=== PATIENT | male | born 2000 | race African-American/Black ===

== ENCOUNTER 2021-12-21 08:41 | Emergency (ER) | payer OTHER ==
[2021-12-21 08:47] VITALS: BMI 22.1
[2021-12-21] MEDS ORDERED: KETOROLAC TROMETHAMINE 15 MG/ML VIAL IVPUSH ONE (09:08)
[2021-12-21] MEDS ORDERED: KETOROLAC TROMETHAMINE 15 MG/ML VIAL ONE (09:18)
[2021-12-21] MEDS ORDERED: diazePAM CARPU-JECT 10 MG/2 ML DISP.SYRIN IVPUSH ONE (09:26)
[2021-12-21] MEDS ORDERED: diazePAM CARPU-JECT 10 MG/2 ML DISP.SYRIN ONE (09:47)
[2021-12-21] MEDS ORDERED: FLUMAZENIL 0.5 MG/5 ML VIAL IVPUSH ONE (10:04)
[2021-12-21 12:43] VITALS: BP 131/79; PULSE 59; TEMP 98
== END 2021-12-21 12:30 | disposition home or self-care (01) ==
LOC: JER 08:41
PROC: 0RSCXZZ Reposition Right Temporomandibular Joint, External Approach (ICD-10-PCS; principal; 2021-12-21)
PROC: 0RSDXZZ Reposition Left Temporomandibular Joint, External Approach (ICD-10-PCS; 2021-12-21)
PROC: 3E033NZ Introduction of Analgesics, Hypnotics, Sedatives into Peripheral Vein, Percutaneous Approach (ICD-10-PCS; 2021-12-21)
PROC: 3E0333Z Introduction of Anti-inflammatory into Peripheral Vein, Percutaneous Approach (ICD-10-PCS; 2021-12-21)
DX: S03.03XA Dislocation of jaw, bilateral, initial encounter (principal); Y99.9 Unspecified external cause status
CPT/HCPCS: 70330-TC-FY; 99284-25

== ENCOUNTER 2022-02-27 12:36 | Emergency (ER) | payer OTHER ==
[2022-02-27 13:09] VITALS: BMI 22.1
[2022-02-27] MEDS ORDERED: PROPOFOL 20 ML ONE (14:15)
[2022-02-27 19:26] VITALS: TEMP 97.6
[2022-02-27 19:42] VITALS: BP 120/81; PULSE 60; RESP 16
== END 2022-02-27 18:00 | disposition home or self-care (01) ==
LOC: JER 12:36
DX: S03.00XA Dislocation of jaw, unspecified side, initial encounter (principal)
CPT/HCPCS: 99283-25; 99284-25

== ENCOUNTER 2022-03-03 14:05 | Emergency (ER) | payer OTHER ==
[2022-03-03 14:20] VITALS: RESP 18; BMI 22.1
[2022-03-03] MEDS ORDERED: ALBUTEROL SO4 2.5/IPRATROPIUM 0.5 INH SOL 3 ML VIAL.NEB. NEB ONE ×2 (15:11→15:16)
[2022-03-03 15:58] VITALS: BP 121/72; PULSE 73; TEMP 97.4
== END 2022-03-03 15:50 | disposition home or self-care (01) ==
LOC: JERFT 14:05
PROC: 3E0F7GC Introduction of Other Therapeutic Substance into Respiratory Tract, Via Natural or Artificial Opening (ICD-10-PCS; principal; 2022-03-03)
DX: J45.901 Unspecified asthma with (acute) exacerbation (principal)
CPT/HCPCS: 99284-25

== ENCOUNTER 2022-05-06 12:11 | Emergency (ER) | payer OTHER ==
[2022-05-06 12:24] VITALS: RESP 20; TEMP 98.1; BMI 24.6
[2022-05-06] MEDS ORDERED: BENZTROPINE MESYLATE 1 MG TABLET PO ONE (14:02)
[2022-05-06 14:35] VITALS: BP 124/67; PULSE 76
== END 2022-05-06 14:38 | disposition home or self-care (01) ==
LOC: JER 12:11
DX: R47.89 Other speech disturbances (principal); T50.905A Adverse effect of unspecified drugs, medicaments and biological substances, initial encounter
CPT/HCPCS: 99283-25

== ENCOUNTER 2023-01-01 10:44 | Emergency (ER) | payer OTHER ==
[2023-01-01 10:50] VITALS: TEMP 98.3; BMI 29.9
[2023-01-01] MEDS ORDERED: SODIUM CHLORIDE 0.9% 1000 ML INFUS.BAG IV ONE (12:11)
[2023-01-01 13:14] LABS: BASO % 0.4 % (0-2.0); EOS % 6.2 % (0-4.5); HEMATOCRIT 45.1 % (35.4-49); HEMOGLOBIN 15.2 GM/dL (11.7-16.9); LYMPH % 25.1 % (8-40); MCH 30.7 pg (25.7-33.7); MCHC 33.7 g/dl (32.0-35.9); MEAN CELL VOLUME 91.1 fl (80-96); MEAN PLT VOLUME 7.7 fl (7.5-11.1); MONO % 16.4 % (3.8-10.2); NEUT % 51.9 % (42.8-82.8); PLATELET COUNT 248 10^3/uL (134-434); RBC 4.95 M/mm3 (4.00-5.60); RDW 13.9 % (11.9-15.9); WHITE BLOOD COUNT 6.5 K/mm3 (4.0-10.0)
[2023-01-01 13:16] LABS: POTASSIUM 4.6 mmol/L (3.5-5.1)
[2023-01-01 13:19] LABS: ALBUMIN 3.7 g/dl (3.4-5.0); CALCIUM 9.5 mg/dL (8.5-10.1)
[2023-01-01 13:24] LABS: BILIRUBIN,TOTAL 0.4 mg/dL (0.2-1)
[2023-01-01 13:43] LABS: PH,URINE 7.5 (5.0-8.0); URINE APPEARANCE CLEAR; URINE BILIRUBIN NEGATIVE (NEGATIVE); URINE COLOR YELLOW; URINE GLUCOSE (UA) NEGATIVE (NEGATIVE); URINE KETONE NEGATIVE (NEGATIVE); URINE LEUK ESTERASE NEGATIVE (NEGATIVE); URINE NITRITE NEGATIVE (NEGATIVE); URINE PROTEIN NEGATIVE (NEGATIVE); URINE UROBILINOGEN 0.2 mg/dL (0.2-1.0)
[2023-01-01 13:58] LABS: ERYTHROCYTE SEDIMENTATION RATE 4 mm/hr (0-10)
[2023-01-01 15:26] VITALS: BP 139/91; PULSE 84; RESP 16
== END 2023-01-01 15:26 | disposition home or self-care (01) ==
LOC: JER 10:44
DX: R50.9 Fever, unspecified (principal); R53.83 Other fatigue; R53.81 Other malaise; R10.9 Unspecified abdominal pain; R19.7 Diarrhea, unspecified; R11.0 Nausea; R53.1 Weakness; R19.5 Other fecal abnormalities; Z20.822 Contact with and (suspected) exposure to COVID-19
CPT/HCPCS: 0241U-QW; 36415; 76705-TC; 80053; 81003; 82150; 83690; 85025; 85651; 87086; 99284-25

== ENCOUNTER 2023-01-11 03:25 | Emergency (ER) | payer OTHER ==
[2023-01-11 03:32] VITALS: BP 130/78; PULSE 76; RESP 18; TEMP 97.7; BMI 29.5
[2023-01-11] MEDS ORDERED: KETOROLAC TROMETHAMINE 15 MG/ML VIAL IM ONE (03:51)
[2023-01-11] MEDS ORDERED: AMOX TR/POT CLAV 875MG/125MG TABLETS (FP) PO ONE (03:52)
[2023-01-11] MEDS ORDERED: AMOX TR/POT CLAV 875MG/125MG TABLETS (FP) ONE (03:57)
[2023-01-11] MEDS ORDERED: KETOROLAC TROMETHAMINE 15 MG/ML VIAL ONE (03:57)
== END 2023-01-11 04:10 | disposition home or self-care (01) ==
LOC: JER 03:25
PROC: 3E0233Z Introduction of Anti-inflammatory into Muscle, Percutaneous Approach (ICD-10-PCS; principal; 2023-01-11)
DX: K08.89 Other specified disorders of teeth and supporting structures (principal); K03.81 Cracked tooth
CPT/HCPCS: 99284-25

== ENCOUNTER 2023-04-19 18:57 | Emergency (ER) | payer OTHER ==
[2023-04-19 19:02] VITALS: BP 128/78; PULSE 73; RESP 18; TEMP 97.4; BMI 30.5
[2023-04-19] MEDS: ALBUTEROL SO4 2.5/IPRATROPIUM 0.5 INH SOL 3 ML VIAL.NEB. NEB SCH ×2 (19:57→19:58)
[2023-04-19] MEDS ORDERED: ALBUTEROL SO4 2.5/IPRATROPIUM 0.5 INH SOL 3 ML VIAL.NEB. NEB ONE (19:58)
== END 2023-04-19 20:45 | disposition home or self-care (01) ==
LOC: JERFT 18:57
PROC: 3E0F7GC Introduction of Other Therapeutic Substance into Respiratory Tract, Via Natural or Artificial Opening (ICD-10-PCS; principal; 2023-04-19)
DX: J45.909 Unspecified asthma, uncomplicated (principal); R07.89 Other chest pain; R06.02 Shortness of breath; Z20.822 Contact with and (suspected) exposure to COVID-19
CPT/HCPCS: 0241U-QW; 99283-25

== ENCOUNTER 2023-05-29 14:27 | Emergency (ER) | payer OTHER ==
[2023-05-29 14:57] VITALS: TEMP 98.2
[2023-05-29] MEDS ORDERED: ACETAMINOPHEN 500 MG TABLET (FP) PO ONE (15:15)
[2023-05-29] MEDS ORDERED: MAG HYDROX/AL HYDROX/SIMETH -MYLANTA- ORAL SUSPENSION PO ONE (15:20)
[2023-05-29] MEDS ORDERED: ALBUTEROL SO4 2.5/IPRATROPIUM 0.5 INH SOL 3 ML VIAL.NEB. NEB ONE (15:27)
[2023-05-29] MEDS ORDERED: ACETAMINOPHEN 325 MG TABLET (FP) ONE ×2 (15:27→15:29)
[2023-05-29] MEDS ORDERED: MAG HYDROX/AL HYDROX/SIMETH 30 ML UNIT-DOSE CUP ONE (15:28)
[2023-05-29] MEDS ORDERED: ALBUTEROL SO4 2.5/IPRATROPIUM 0.5 INH SOL 3 ML VIAL.NEB. NEB SCH (15:30)
[2023-05-29] MEDS: ALBUTEROL SO4 2.5/IPRATROPIUM 0.5 INH SOL 3 ML VIAL.NEB. NEB SCH ×4 (15:35→16:26)
[2023-05-29 15:39] VITALS: BMI 28.0
[2023-05-29] MEDS ORDERED: ALBUTEROL SO4 HFA INHALER IH ONE ×2 (16:17→16:31)
[2023-05-29 16:36] VITALS: BP 122/78; PULSE 80; RESP 18
== END 2023-05-29 16:36 | disposition home or self-care (01) ==
LOC: JER 14:27
PROC: 3E0F7GC Introduction of Other Therapeutic Substance into Respiratory Tract, Via Natural or Artificial Opening (ICD-10-PCS; principal; 2023-05-29)
PROC: 3E0F7GC Introduction of Other Therapeutic Substance into Respiratory Tract, Via Natural or Artificial Opening (ICD-10-PCS; 2023-05-29)
DX: R06.02 Shortness of breath (principal); J34.89 Other specified disorders of nose and nasal sinuses; R09.81 Nasal congestion; R05.9 Cough, unspecified; J45.909 Unspecified asthma, uncomplicated; J06.9 Acute upper respiratory infection, unspecified; Z20.822 Contact with and (suspected) exposure to COVID-19
CPT/HCPCS: 0241U-QW; 71045-TC-FY; 93005; 93010; 99285-25

== ENCOUNTER 2023-05-31 10:07 | Emergency (ER) | payer OTHER ==
[2023-05-31 10:14] VITALS: BP 112/67; PULSE 111; RESP 18; TEMP 98.2; BMI 30.3
== END 2023-05-31 10:42 | disposition home or self-care (01) ==
LOC: JERFT 10:07
DX: R50.9 Fever, unspecified (principal); R05.9 Cough, unspecified; J02.9 Acute pharyngitis, unspecified; R09.81 Nasal congestion; M79.10 Myalgia, unspecified site; J06.9 Acute upper respiratory infection, unspecified
CPT/HCPCS: 99282-25

== ENCOUNTER 2023-07-03 19:41 | Emergency (ER) | payer OTHER ==
[2023-07-03 20:05] VITALS: BP 131/81; PULSE 89; RESP 18; TEMP 98.1; BMI 28.3
[2023-07-03] MEDS ORDERED: DEXAMETHASONE 4 MG TABLET (FP) PO ONE (20:05)
[2023-07-03] MEDS ORDERED: methylPREDNISolone NA SUCC 125 MG/2 ML VIAL IVPB ONE (20:11)
[2023-07-03] MEDS ORDERED: ALBUTEROL SO4 2.5/IPRATROPIUM 0.5 INH SOL 3 ML VIAL.NEB. NEB ONE (20:16)
[2023-07-03] MEDS ORDERED: methylPREDNISolone NA SUCC 125 MG/2 ML VIAL ONE (20:17)
[2023-07-03] MEDS: ALBUTEROL SO4 2.5/IPRATROPIUM 0.5 INH SOL 3 ML VIAL.NEB. NEB SCH ×2 (20:36→20:49)
[2023-07-03 20:39] LABS: VENOUS BASE EXCESS -1.1 mmol/L (-2-2); VENOUS O2 SATURATION 55.1 % (70-80); VENOUS PCO2 44.3 mmHg (38-52); VENOUS PH 7.362 (7.310-7.410)
[2023-07-03 20:45] LABS: BASO % 0.9 % (0-2.0); HEMATOCRIT 46.1 % (35.4-49); HEMOGLOBIN 15.5 GM/dL (11.7-16.9); MCH 31.4 pg (25.7-33.7); MCHC 33.6 g/dl (32.0-35.9); MEAN CELL VOLUME 93.7 fl (80-96); MEAN PLT VOLUME 7.6 fl (7.5-11.1); MONO % 13.2 % (3.8-10.2); NEUT % 49.9 % (42.8-82.8); PLATELET COUNT 222 10^3/uL (134-434); RBC 4.92 M/mm3 (4.00-5.60); RDW 13.5 % (11.9-15.9); WHITE BLOOD COUNT 6.5 K/mm3 (4.0-10.0)
[2023-07-03 20:51] LABS: INR 1.22 (0.83-1.09); PROTHROMBIN TIME (PATIENT) 14.1 SEC (9.7-13.0)
[2023-07-03 20:54] LABS: ACTIVATED PTT 31.1 SECONDS (25.2-36.5)
[2023-07-03 21:05] LABS: POTASSIUM 3.7 mmol/L (3.5-5.1)
[2023-07-03 21:06] LABS: CALCIUM 9.2 mg/dL (8.5-10.1)
[2023-07-03 21:07] LABS: ALBUMIN 3.9 g/dl (3.4-5.0); BLOOD UREA NITROGEN 11.7 mg/dL (7-18)
[2023-07-03 21:10] LABS: CREATININE 1.1 mg/dL (0.55-1.3)
[2023-07-03 21:12] LABS: BILIRUBIN,TOTAL 0.3 mg/dL (0.2-1)
[2023-07-03] MEDS ORDERED: ALBUTEROL SO4 HFA INHALER IH ONE ×2 (21:51→21:52)
== END 2023-07-03 21:59 | disposition home or self-care (01) ==
LOC: JER 19:41
PROC: 3E033NZ Introduction of Analgesics, Hypnotics, Sedatives into Peripheral Vein, Percutaneous Approach (ICD-10-PCS; principal; 2023-07-03)
PROC: 3E0F7GC Introduction of Other Therapeutic Substance into Respiratory Tract, Via Natural or Artificial Opening (ICD-10-PCS; 2023-07-03)
DX: J45.909 Unspecified asthma, uncomplicated (principal); U07.1 COVID-19
CPT/HCPCS: 0241U-QW; 36415; 71045-TC-FY; 80053; 82803; 84484; 85025; 85379; 85610; 85730; 93005; 93010; 99285-25

== ENCOUNTER 2023-09-17 17:37 | Emergency (ER) | payer OTHER ==
[2023-09-17 17:49] VITALS: BP 136/76; PULSE 98; TEMP 100.6; BMI 30.2
[2023-09-17] MEDS ORDERED: ALBUTEROL SO4 2.5/IPRATROPIUM 0.5 INH SOL 3 ML VIAL.NEB. NEB SCH (18:00)
[2023-09-17] MEDS: DEXAMETHASONE SOD PHOSPHATE 10 MG/1 ML VIAL IM ONE (18:10)
[2023-09-17] MEDS: ALBUTEROL SO4 2.5/IPRATROPIUM 0.5 INH SOL 3 ML VIAL.NEB. NEB SCH (18:10)
[2023-09-17 18:46] LABS: VENOUS BASE EXCESS 1.1 mmol/L (-2-2); VENOUS O2 SATURATION 86.5 % (70-80); VENOUS PCO2 43.1 mmHg (38-52); VENOUS PH 7.401 (7.310-7.410)
[2023-09-17] MEDS ORDERED: ACETAMINOPHEN INJECTION 100 ML IVPB ONE (18:48)
[2023-09-17 18:49] LABS: BASO % 0.2 % (0-2.0); HEMATOCRIT 43.8 % (35.4-49); LYMPH % 15.3 % (8-40); MCH 31.5 pg (25.7-33.7); MCHC 34.2 g/dl (32.0-35.9); MEAN CELL VOLUME 92.1 fl (80-96); MONO % 18.1 % (3.8-10.2); NEUT % 66.4 % (42.8-82.8); PLATELET COUNT 183 10^3/uL (134-434); RBC 4.75 M/mm3 (4.00-5.60); RDW 14.1 % (11.9-15.9); WHITE BLOOD COUNT 9.8 K/mm3 (4.0-10.0)
[2023-09-17 18:56] LABS: INR 1.29 (0.83-1.09); PROTHROMBIN TIME (PATIENT) 14.9 SEC (9.7-13.0)
[2023-09-17] MEDS ORDERED: ALBUTEROL SO4 HFA INHALER IH ONE (18:57)
[2023-09-17] MEDS: ALBUTEROL SO4 HFA INHALER IH ONE (18:58)
[2023-09-17] MEDS: ACETAMINOPHEN 1000 MG/100 ML BAG IVPB ONE (18:58)
[2023-09-17 18:59] LABS: ACTIVATED PTT 30.1 SECONDS (25.2-36.5)
[2023-09-17 19:00] LABS: POTASSIUM 3.6 mmol/L (3.5-5.1)
[2023-09-17 19:02] LABS: BLOOD UREA NITROGEN 18.4 mg/dL (7-18); CALCIUM 8.5 mg/dL (8.5-10.1); MAGNESIUM 2.1 mg/dL (1.8-2.4)
[2023-09-17 19:03] LABS: ALBUMIN 3.9 g/dl (3.4-5.0)
[2023-09-17 19:06] LABS: CREATININE 1.5 mg/dL (0.55-1.3)
[2023-09-17 19:07] LABS: BILIRUBIN,TOTAL 0.4 mg/dL (0.2-1); TOT PROT 7.2 g/dl (6.4-8.2)
== END 2023-09-17 18:50 | disposition left against medical advice (07) ==
LOC: JER 17:37
PROC: 3E023GC Introduction of Other Therapeutic Substance into Muscle, Percutaneous Approach (ICD-10-PCS; principal; 2023-09-17)
PROC: 3E0F7GC Introduction of Other Therapeutic Substance into Respiratory Tract, Via Natural or Artificial Opening (ICD-10-PCS; 2023-09-17)
DX: R06.02 Shortness of breath (principal); R50.9 Fever, unspecified; R05.9 Cough, unspecified; R19.7 Diarrhea, unspecified; J45.909 Unspecified asthma, uncomplicated; J10.1 Influenza due to other identified influenza virus with other respiratory manifestations; Z20.822 Contact with and (suspected) exposure to COVID-19
CPT/HCPCS: 0241U-QW; 36415; 71045-TC-FY; 80053; 82803; 83735; 84484; 85025; 85610; 85730; 87040; 99285-25; J1100

== ENCOUNTER 2023-11-13 19:12 | Emergency (ER) | payer OTHER ==
[2023-11-13 19:21] VITALS: BP 108/68; PULSE 96; RESP 17; TEMP 97.5; BMI 26.3
== END 2023-11-13 20:38 | disposition home or self-care (01) ==
LOC: JERFT 19:12 → JER 19:12 → JERFT 20:38
DX: R06.02 Shortness of breath (principal)
CPT/HCPCS: 99281-25

== ENCOUNTER 2023-12-19 14:08 | Emergency (ER) | payer OTHER ==
[2023-12-19 14:26] VITALS: BP 116/65; PULSE 55; RESP 18; TEMP 98.7; BMI 29.5
[2023-12-19] MEDS ORDERED: LIDOCAINE 5% TOPICAL PATCH ONE (15:22)
[2023-12-19] MEDS ORDERED: KETOROLAC TROMETHAMINE 15 MG/ML VIAL ONE (15:22)
[2023-12-19] MEDS ORDERED: LIDOCAINE 4% PATCH TP ONE (15:26)
[2023-12-19] MEDS: LIDOCAINE 5% TOPICAL PATCH TP ONE (15:36)
[2023-12-19] MEDS: KETOROLAC TROMETHAMINE 15 MG/ML VIAL IM ONE (15:36)
[2023-12-19] MEDS ORDERED: LIDOCAINE PATCH REMOVAL MC SCH (22:00)
== END 2023-12-19 16:06 | disposition home or self-care (01) ==
LOC: JERFT 14:08
PROC: 3E0233Z Introduction of Anti-inflammatory into Muscle, Percutaneous Approach (ICD-10-PCS; principal; 2023-12-19)
DX: S46.812A Strain of other muscles, fascia and tendons at shoulder and upper arm level, left arm, initial encounter (principal); M54.2 Cervicalgia; X50.0XXA Overexertion from strenuous movement or load, initial encounter
CPT/HCPCS: 99284-25

== ENCOUNTER 2024-04-09 09:10 | Emergency (ER) | payer OTHER ==
[2024-04-09 09:40] VITALS: BP 114/78; PULSE 92; RESP 16; TEMP 97.6; BMI 24.3
== END 2024-04-09 10:41 | disposition left against medical advice (07) ==
LOC: JER 09:10
DX: Z53.21 Procedure and treatment not carried out due to patient leaving prior to being seen by health care provider (principal)
CPT/HCPCS: 99281-25